=== PATIENT | male | born 1935 | race Caucasian/White ===

== ENCOUNTER 2021-11-04 07:48 | Outpatient (CLI) | payer MEDICARE, SELFPAY | END 2021-11-04 07:49 | disposition home or self-care (01) | LOC: ANHAUDIO 07:51 | PROVIDERS: PCP Internal Medicine; Visit Provider Nurse Practitioner Family | DX: H90.3 Sensorineural hearing loss, bilateral (principal) | CPT/HCPCS: 92557; 92567 ==